=== PATIENT | male | born 1990 | race Hispanic/Latino ===

== ENCOUNTER 2019-01-20 22:57 | Emergency (ER) | payer OTHER ==
[2019-01-21 00:13] LABS: BASOPHILS % (AUTO) 0.6 % (0.0-5.0); EOSINOPHILS % (AUTO) 3.2 % (0.0-8.0); HEMATOCRIT 42.7 % (42-54); LYMPHOCYTES % (AUTO) 14.1 % (21.0-51.0); MEAN CORPUSCULAR HEMOGLOBIN 31.4 pg (27.0-33.0); MEAN CORPUSCULAR HGB CONC 34.4 g/dL (32.0-36.0); MEAN CORPUSCULAR VOLUME 91.3 fL (79-99); MONOCYTES % (AUTO) 5.4 % (3.0-13.0); NEUTROPHILS % (AUTO) 76.7 % (40.0-77.0); PLATELET COUNT (AUTO) 267 K/uL (130-400); RED BLOOD CELL COUNT(AUTO) 4.67 MIL/uL (4.50-6.20); RED CELL DISTRIBUTION WIDTH 13.7 % (11.0-15.5); WHITE BLOOD COUNT (AUTO) 10.8 K/uL (4.8-10.8)
[2019-01-21 00:30] LABS: ALBUMIN 3.3 g/dL (3.5-5.0); BILIRUBIN,TOTAL 0.2 mg/dL (0.2-1.0); CREATININE 1.3 mg/dL (0.5-1.5); POTASSIUM 3.7 mmol/L (3.5-5.1); TOTAL PROTEIN, SERUM 6.5 g/dL (6.0-8.3)
[2019-01-21 00:56] LABS: BILIRUBIN,URINE Negative (NEGATIVE); COLOR,URINE Dark Yellow (YELLOW); GLUCOSE, URINE (UA) Negative (NEGATIVE); KETONES,URINE Trace mg/dL (NEGATIVE); LEUKOCYTE ESTERASE ,URINE Negative (NEGATIVE); NITRATE,URINE Negative (NEGATIVE); OCCULT BLOOD,URINE Negative (NEGATIVE); PH,URINE 5.5 (5.0-8.0); PROTEIN,URINE Negative (NEGATIVE)
[2019-01-21 01:00] LABS: APPEARANCE,URINE CLEAR (CLEAR)
[2019-01-21 01:15] LABS: AMPHET/METH SCREEN,URINE NEGATIVE (NEGATIVE); BARBITURATE SCREEN, URINE NEGATIVE (NEGATIVE); BENZODIAZEPINES SCREEN,URINE NEGATIVE (NEGATIVE); CANNABINOID SCREEN,URINE POSITIVE (NEGATIVE); COCAINE SCREEN,URINE NEGATIVE (NEGATIVE); OPIATE SCREEN,URINE NEGATIVE (NEGATIVE); PHENCYCLIDINE SCREEN,URINE NEGATIVE (NEGATIVE)
== END 2019-01-21 03:58 | disposition home or self-care (01) ==
LOC: EDH 22:57
DX: R55 Syncope and collapse (principal); R06.02 Shortness of breath; F12.10 Cannabis abuse, uncomplicated; Z72.0 Tobacco use
CPT/HCPCS: 36415; 71046; 80053; 80305; 81003; 82550; 84484; 85025; 85378; 93005; 96360

== ENCOUNTER 2019-11-29 20:09 | Emergency (ER) | payer BC | END 2019-11-29 21:39 | disposition home or self-care (01) | LOC: EDH 20:09 | DX: J20.9 Acute bronchitis, unspecified (principal); Z98.890 Other specified postprocedural states; Z87.891 Personal history of nicotine dependence | CPT/HCPCS: 99281 ==

== ENCOUNTER 2020-11-01 10:06 | Emergency (ER) | payer BC ==
[2020-11-01] MEDS ORDERED: KETOROLAC TROMETHAMINE 30MG/ML ONE (11:19)
[2020-11-01] MEDS ORDERED: PROCHLORPERAZINE EDISYLATE 10 MG/2 ML VIAL ONE (11:19)
[2020-11-01 11:28] LABS: BASOPHILS % (AUTO) 0.7 % (0.0-5.0); EOSINOPHILS % (AUTO) 2.9 % (0.0-8.0); HEMATOCRIT 46.5 % (42-54); MEAN CORPUSCULAR HGB CONC 33.5 g/dL (32.0-36.0); MEAN CORPUSCULAR VOLUME 89.4 fL (79-99); MONOCYTES % (AUTO) 7.5 % (3.0-13.0); NEUTROPHILS % (AUTO) 64.2 % (40.0-77.0); PLATELET COUNT (AUTO) 285 K/uL (130-400); RED CELL DISTRIBUTION WIDTH 13.8 % (11.0-15.5); WHITE BLOOD COUNT (AUTO) 7.6 K/uL (4.8-10.8)
[2020-11-01 11:34] LABS: POTASSIUM 4.4 mmol/L (3.5-5.1)
[2020-11-01 11:39] LABS: ALBUMIN 3.8 g/dL (3.5-5.0); BILIRUBIN,TOTAL 0.2 mg/dL (0.2-1.0); TOTAL PROTEIN, SERUM 7.8 g/dL (6.0-8.3)
== END 2020-11-01 12:55 | disposition home or self-care (01) ==
LOC: EDH 10:06
DX: S06.0X1A Concussion with loss of consciousness of 30 minutes or less, initial encounter (principal); Z72.0 Tobacco use; W18.39XA Other fall on same level, initial encounter; Y93.89 Activity, other specified; Y92.89 Other specified places as the place of occurrence of the external cause; Y99.8 Other external cause status
CPT/HCPCS: 36415; 70450; 73030; 80053; 85025; 96374; 96375; 99285; J0780; J1885

== ENCOUNTER 2020-11-03 16:28 | Observation (INO) | payer BC ==
[~2020-11-03] VITALS: Ht 172.7 cm; Wt 157.9 kg
[2020-11-03 17:26] LABS: APPEARANCE,URINE Clear (CLEAR); BILIRUBIN,URINE Negative (NEGATIVE); COLOR,URINE Yellow (YELLOW); GLUCOSE, URINE (UA) Negative (NEGATIVE); KETONES,URINE Negative (NEGATIVE); LEUKOCYTE ESTERASE ,URINE Negative (NEGATIVE); NITRATE,URINE Negative (NEGATIVE); OCCULT BLOOD,URINE Small (NEGATIVE); PROTEIN,URINE Negative (NEGATIVE); UROBILINOGEN,URINE 0.2 mg/dL (0.2-1.0)
[2020-11-03 17:27] LABS: BASOPHILS % (AUTO) 0.5 % (0.0-5.0); EOSINOPHILS % (AUTO) 3.5 % (0.0-8.0); LYMPHOCYTES % (AUTO) 26.1 % (21.0-51.0); MEAN CORPUSCULAR HEMOGLOBIN 30.3 pg (27.0-33.0); MEAN CORPUSCULAR VOLUME 86.4 fL (79-99); MONOCYTES % (AUTO) 9.6 % (3.0-13.0); NEUTROPHILS % (AUTO) 59.6 % (40.0-77.0); PLATELET COUNT (AUTO) 265 K/uL (130-400); RED BLOOD CELL COUNT(AUTO) 5.09 MIL/uL (4.50-6.20); RED CELL DISTRIBUTION WIDTH 13.9 % (11.0-15.5); WHITE BLOOD COUNT (AUTO) 9.7 K/uL (4.8-10.8)
[2020-11-03 17:34] LABS: AMPHET/METH SCREEN,URINE NEGATIVE (NEGATIVE); BARBITURATE SCREEN, URINE NEGATIVE (NEGATIVE); BENZODIAZEPINES SCREEN,URINE NEGATIVE (NEGATIVE); CANNABINOID SCREEN,URINE POSITIVE (NEGATIVE); COCAINE SCREEN,URINE NEGATIVE (NEGATIVE); OPIATE SCREEN,URINE NEGATIVE (NEGATIVE); PHENCYCLIDINE SCREEN,URINE NEGATIVE (NEGATIVE)
[2020-11-03] MEDS ORDERED: DiphenhydrAMINE HCL 50 MG/ML VIAL ONE (17:38)
[2020-11-03] MEDS ORDERED: METOCLOPRAMIDE 10 MG/2 ML VIAL ONE (17:38)
[2020-11-03] MEDS ORDERED: LABETALOL 20 MG/4 ML DISP.SYRIN IV ONE (17:39)
[2020-11-03 17:43] LABS: BACTERIA,URINE Rare /HPF (None Seen); SQUAMOUS EPITHELIAL CELL,UR Rare /HPF (0-2); WBC,URINE 0-1 /HPF (0-1)
[2020-11-03 17:46] LABS: POTASSIUM 3.7 mmol/L (3.5-5.1)
[2020-11-03 17:50] LABS: BILIRUBIN,TOTAL 0.3 mg/dL (0.2-1.0); TOTAL PROTEIN, SERUM 7.7 g/dL (6.0-8.3)
[2020-11-03] MEDS ORDERED: ONDANSETRON HCL 4 MG/2 ML VIAL IV PRN (19:30)
[2020-11-03] MEDS ORDERED: AMLODIPINE BESYLATE 5 MG TAB PO SCH (19:30)
[2020-11-03] MEDS ORDERED: ACETAMINOPHEN 325 MG TAB PO PRN ×2 (19:30)
[2020-11-03] MEDS ORDERED: LACTULOSE 20 GM/30 ML UDCUP PO PRN (19:30)
[2020-11-03] MEDS ORDERED: IOHEXOL 350 MG/ML 100ML INFUS..BTL IV ONE (20:15)
[2020-11-03] MEDS ORDERED: AMLODIPINE BESYLATE 5 MG TAB ONE (20:42)
[2020-11-03] MEDS ORDERED: FAMOTIDINE 20MG TAB 20 MG TAB PO SCH (21:00)
[2020-11-04 03:36] LABS: BASOPHILS % (AUTO) 0.7 % (0.0-5.0); EOSINOPHILS % (AUTO) 4.1 % (0.0-8.0); LYMPHOCYTES % (AUTO) 31.4 % (21.0-51.0); MEAN CORPUSCULAR HEMOGLOBIN 30.2 pg (27.0-33.0); MEAN CORPUSCULAR HGB CONC 34.3 g/dL (32.0-36.0); MONOCYTES % (AUTO) 9.3 % (3.0-13.0); NEUTROPHILS % (AUTO) 53.8 % (40.0-77.0); PLATELET COUNT (AUTO) 254 K/uL (130-400); RED CELL DISTRIBUTION WIDTH 14.3 % (11.0-15.5); WHITE BLOOD COUNT (AUTO) 8.8 K/uL (4.8-10.8)
[2020-11-04 03:49] LABS: CREATININE 0.9 mg/dL (0.5-1.5); POTASSIUM 3.7 mmol/L (3.5-5.1)
[2020-11-04] MEDS ORDERED: ACETAMINOPHEN 325 MG TAB ONE (05:08)
[2020-11-04] MEDS ORDERED: ENOXAPARIN SODIUM 40 MG/0.4 ML SYRINGE SQ SCH (09:00)
[2020-11-04] MEDS ORDERED: GADODIAMIDE 10 MMOL/20 ML VIAL IV ONE (09:37)
[2020-11-04] MEDS ORDERED: FAMOTIDINE 20MG TAB 20 MG TAB ONE (09:50)
[2020-11-04] MEDS ORDERED: AMLODIPINE BESYLATE 5 MG TAB ONE (09:50)
[2020-11-04] MEDS ORDERED: ENOXAPARIN SODIUM 40 MG/0.4 ML SYRINGE SQ ONE (09:51)
[2020-11-04] MEDS ORDERED: MORPHINE SULFATE 2 MG/ML 1ML SYG IVP PRN (14:45)
[2020-11-04] MEDS ORDERED: GABAPENTIN 300 MG CAPSULE PO SCH (14:45)
[2020-11-04] MEDS ORDERED: GABAPENTIN 300 MG CAPSULE ONE (14:46)
[2020-11-04] MEDS ORDERED: GABA300C PO (14:51)
[2020-11-04] MEDS ORDERED: AMLO5TAB4 PO (14:51)
--- NOTE | 2020-11-04 15:40 | NUR ---
discharge patient has been discharged...discharge forms provided to patient..he will f/u with pcp in 3-5 days and other providers as directed.
== END 2020-11-04 15:41 | disposition home or self-care (01) ==
LOC: EDH 16:28 → EDHIP 19:20
PROVIDERS: ADMIT Family Medicine; ATTEND Family Medicine
DX: R51.9 Headache, unspecified (principal); H70.91 Unspecified mastoiditis, right ear; I10 Essential (primary) hypertension; E66.01 Morbid (severe) obesity due to excess calories; G43.909 Migraine, unspecified, not intractable, without status migrainosus; I16.1 Hypertensive emergency; H53.2 Diplopia; F12.90 Cannabis use, unspecified, uncomplicated; F17.210 Nicotine dependence, cigarettes, uncomplicated; W10.8XXA Fall (on) (from) other stairs and steps, initial encounter; Y93.89 Activity, other specified; Y92.813 Airplane as the place of occurrence of the external cause; Z68.43 Body mass index [BMI] 50.0-59.9, adult
CPT/HCPCS: 36415 ×2; 70450; 70496; 70498; 70543; 70553; 80048; 80053; 80305; 81001; 85025 ×2; 85651; 86140; 99283; A9579; G0378 ×21; J1200; J1650; J2765; Q9967

== ENCOUNTER 2024-10-25 15:25 | Emergency (ER) | payer BC ==
[~2024-10-25] VITALS: Ht 172.7 cm; Wt 134.7 kg
[2024-10-25 15:25] VITALS: BP 175/92; PULSE 100; RESP 18; TEMP 98.2
[~2024-10-25 15:25] MED LIST: AMLO5TAB4 PO; GABA300C PO
[2024-10-25] MEDS: ketOROlac 15MG/ML VIAL (15MG/ML) IM STA (16:07)
[2024-10-25] MEDS: methoCARBamol 500 MG TABLET PO STA (16:08)
[2024-10-25] MEDS: HYDROcodone/APAP 5/325 1 TAB TABLET PO STA (16:08)
--- NOTE | 2024-10-25 17:28 | HMCIMG ---
HIP UNILAT 1VW LEFT CLINICAL HISTORY: trauma COMPARISON: None TECHNIQUE: AP pelvis and 2 views of left hip images were obtained. FINDINGS: No obvious fracture or dislocation. No joint effusion. The soft tissues appear unremarkable. No radiopaque foreign bodies. IMPRESSION: No acute findings.
--- NOTE | 2024-10-25 17:34 | HMCIMG ---
RIBS UNI LT W PA CHEST 3+VWS CLINICAL HISTORY: trauma COMPARISON: 01/20/2019 TECHNIQUE: AP view of the chest +4 images of the left ribs were obtained. FINDINGS: The lungs are clear. The cardiomediastinal silhouette is unremarkable. The bony structures are intact with no identified rib fractures. IMPRESSION: Normal study with no acute trauma
[2024-10-25] MEDS ORDERED: NAPR-1192 PO (17:49)
--- NOTE | 2024-10-25 17:49 | ERN ---
ED Note History of Present Illness Stated Complaint: LEFT LOWER BACK PAIN S/P INJURY Chief Complaint: Low Back Pain/Injury Time Seen by MD: 15:37 Time Seen by Midlevel: 15:41 Dictation: 34-year-old male coming in complaining of left rib pain and left hip pain steadily, patient states he already has a history of a back surgery with this with the his back pain flares up and has to use a cane, yesterday he slipped with a cane backwards broke a cabinet and hit his ribs on the tub. Negative LOC, complaining of pain on palpation. Denies any chest pain, short of breath, numbness, tingling, saddle anesthesia. Allergies: Coded Allergies: No Known Drug Allergies (Unverified Allergy, Unknown, 11/29/19) Home Meds Active Scripts Gabapentin (Neurontin) 300 Mg Capsule, 300 MG PO TID for 10 Days, #30 CAP Prov:LARA KINCAID I MOLDER SETTER 11/04/20 Amlodipine Besylate (Norvasc 5Mg Tab) 5 Mg Tablet, 5 MG PO DAILY for 30 Days, #30 TAB Prov:LARA KINCAID I MOLDER SETTER 11/04/20 Past Medical History Past Medical History: Other Additional Past Medical Hx: BACK PAIN Surgical History: Other Surgical History Other: BACK SX Review of System Dictation Constitutional: Negative for fever,chills, and weight loss Eyes: Negative for injury, pain,redness, and discharge ENT: Negative for injury,pain or swelling Cardiovascular: Negative for chest pain, palpitations, and edema Respiratory: Negative for shortness of breath, cough, and wheezing, Abdomen/GI: Negative for abdominal pain, nausea, vomiting, diarrhea, and constipation Back: Negative for injury and pain : Negative for injury, bleeding and discharge MS/Extremity: Left hip pain, left-sided rib pain Skin: Negative for rash, and discoloration Neuro: Negative for headache, weakness, numbness, tingling, and seizure Psych: Negative for suicide ideation, homicidal ideation, and hallucinations Review of Systems: was completed Initial Vital Sign VS Vital Signs Date Time Temp Pulse Resp B/P (MAP) Pulse Ox O2 Delivery O2 Flow Rate FiO2 10/25/24 15:25 98.2 100 18 175/92 97 Room Air 0 Physical Exam Dictation General: awake, alert, NAD Head/Face: Normocephalic, atraumatic Eyes: PERRL, EOMI, vision at baseline ENT: oral cavity clear, TMs clear, no signs of infection Neck: Trachea midline, supple, no nuchal rigidity Cardiovascular: RRR, normal S1/S2, No MRGs, no JVD Respiratory: CTAB, no respiratory distress, No rales or wheezes Abdomen: Soft, non-tender, non-distended, normal bowel sounds, no guarding or rebound. Skin: Warm, dry, normal turgor, no rash MS/Extremity: Pulses equal, no cyanosis, neurovascular intact, FROM, pain on palpation to the left lower back and left rib cage, laterally Neuro: COAx4, GCS 15, strength 5/5, CN 2-12 intact, normal cerebellar exam, normal gait, Psych: Normal behavior, mood, and affect normal Results (Laboratory/Radiology) X-RAY Comment: [address] [phone] IMAGING REPORT Signed PATIENT: MARIBELL CLARKE MR#: [id number] : 1990 SEX: M AGE: 34 LOCATION: [facility] ORDER 53 STATUS: [facility] REPORT#: [id number] SERVICE 155 REASON: trauma ORDERING PHYSICIAN: DONALDO DOUGHERTY NP PROCEDURE: RIB LT W C - RIBS UNI LT W PA CHEST 3+VWS RIBS UNI LT W PA CHEST 3+VWS CLINICAL HISTORY: trauma COMPARISON: 01/20/2019 TECHNIQUE: AP view of the chest +4 images of the left ribs were obtained. FINDINGS: The lungs are clear. The cardiomediastinal silhouette is unremarkable. The bony structures are intact with no identified rib fractures. IMPRESSION: Normal study with no acute trauma DICTATED BY: LOUIE MARTINS DO DATE: 10/25/241730 ELECTRONICALLY SIGNED BY: LOUIE MARTINS DO DATE: 10/25/241733 [place] [address] [phone] IMAGING REPORT Signed PATIENT: MARIBELL CLARKE MR#: [id number] : 1990 SEX: M AGE: 34 LOCATION: [facility] ORDER 53 STATUS: REG ER [facility] REPORT#: [id number] SERVICE 51 REASON: trauma ORDERING PHYSICIAN: DONALDO DOUGHERTY NP PROCEDURE: HIP U 1V L - HIP UNILAT 1VW LEFT HIP UNILAT 1VW LEFT CLINICAL HISTORY: trauma COMPARISON: None TECHNIQUE: AP pelvis and 2 views of left hip images were obtained. FINDINGS: No obvious fracture or dislocation. No joint effusion. The soft tissues appear unremarkable. No radiopaque foreign bodies. IMPRESSION: No acute findings. DICTATED BY: LOUIE MARTINS DO DATE: 10/25/241716 ELECTRONICALLY SIGNED BY: LOUIE MARTINS DO DATE: 10/25/241727 ED Course ED Course Orders Procedure Category Date Status Time Ribs Uni Lt W Pa RAD 10/25/24 Resulted Chest 3+Vws 15:52 Hip Unilat 1vw Left RAD 10/25/24 Resulted 15:52 Methocarbamol PHA 10/25/24 Complete (Methocarbamol) 15:52 Ketorolac PHA 10/25/24 Complete Tromethamine 15mg/Ml 15:52 Hydrocodone/Apap PHA 10/25/24 In Process 5/325 ([place] 5/325mg) 15:52 Current Medications Medications (Trade) Dose Ordered Sig/Diana Route PRN Reason Start Time Stop Time Status Last Admin Dose Admin Acetaminophen/ Hydrocodone Bitart (NORco 5/325MG) 1 tab ONCE STAT PO 10/25/24 15:52 10/25/24 15:54 DC 10/25/24 16:08 Ketorolac Tromethamine (toRADol) 15 mg ONCE STAT IM 10/25/24 15:52 10/25/24 15:54 DC 10/25/24 16:07 Methocarbamol (methoCARBamol) 1,000 mg ONCE STAT PO 10/25/24 15:52 10/25/24 15:54 DC 10/25/24 16:08 Vital Signs Date Time Temp Pulse Resp B/P (MAP) Pulse Ox O2 Delivery O2 Flow Rate FiO2 10/25/24 15:25 98.2 100 18 175/92 97 Room Air 0 Medical Decision Making MDM MDM: 34-year-old male coming in complaining of left rib pain and left hip pain steadily, patient states he already has a history of a back surgery with this with the his back pain flares up and has to use a cane, yesterday he slipped with a cane backwards broke a cabinet and hit his ribs on the tub. Negative LOC, complaining of pain on palpation. Denies any chest pain, short of breath, numbness, tingling, saddle anesthesia. X-ray of the left ribs and left hip unremarkable. We will prescribe pain medication to patient to take at home follow up with PCP in 1-2 days. Differential diagnosis: Rib fracture, rib contusion, hip contusion, muscle spasm Rationale: Tests considered and ordered secondary to shared decision making include: Previous outside records reviewed: Old ER visits. Risk of complication and/or morbidity or mortality of patient management: None Medications-Per medication reconciliation Need for hospitalization: Patient does not meet criteria for hospitalization. Need for emergency major/minor surgery: No There are no social concerns with this patient. Prescription drug management Prescriptions will include symptomatic care Patient's prior external medical records from other ER visits were reviewed by me as indicated. Prior testing and results from previous visits were reviewed. Prior tests were taken into account with medical decision making and resource utilization, independent historian/historians were used to obtain complete medical history. I independently interpreted the test that were performed, results were reviewed by me and considered findings on radiology if ordered. Medical management and examination interpretation discussions were had by me with other qualified healthcare professionals as indicated for the patient's care. DX & DISP Disposition: Discharge Departure Impression: Primary Impression: Rib contusion Condition: Stable Scripts Naproxen (Naproxen) 375 Mg Tablet 375 MG PO BID for 10 Days, #20 TAB 0 Refills Prov: DONALDO DOUGHERTY CABLE TELEVISION PROGRAM DIRECTOR 10/25/24 Additional Instructions: Please continue to take Tylenol [id number] for pain management in addition to the naproxen that I prescribed. He will be sore for the next couple of days. If any symptoms worsen please return back to the emergency room. Follow up with your primary doctor back pain specialist in 1-2 days. Referrals: AYAKA CARCAMO MD (PCP) Time of Disposition: 17:49 I have reviewed the case, and I agree with, Diagnosis and Plan DONALDO DOUGHERTY NP Oct 25, 2024 17:49
== END 2024-10-25 17:59 | disposition home or self-care (01) ==
LOC: EDH 15:25
DX: S20.20XA Contusion of thorax, unspecified, initial encounter (principal); M25.552 Pain in left hip; Z79.899 Other long term (current) drug therapy; Z98.890 Other specified postprocedural states; X58.XXXA Exposure to other specified factors, initial encounter; Y92.89 Other specified places as the place of occurrence of the external cause; Y99.8 Other external cause status; Y93.89 Activity, other specified
CPT/HCPCS: 99284; 73501; 71101; 96372; J1885